=== PATIENT | male | born 1960 | race Caucasian/White ===

== ENCOUNTER 2016-03-13 11:21 | Emergency (ER) | payer MEDICARE, MEDICAID | END 2016-03-13 14:49 | disposition home or self-care (01) | LOC: ER 11:21 | DX: R53.1 Weakness (principal); E78.5 Hyperlipidemia, unspecified; J44.9 Chronic obstructive pulmonary disease, unspecified; Z86.73 Personal history of transient ischemic attack (TIA), and cerebral infarction without residual deficits; I25.2 Old myocardial infarction; E11.65 Type 2 diabetes mellitus with hyperglycemia; E78.00 Pure hypercholesterolemia, unspecified; I10 Essential (primary) hypertension; Z79.4 Long term (current) use of insulin; Z79.899 Other long term (current) drug therapy; Z79.01 Long term (current) use of anticoagulants; Z98.61 Coronary angioplasty status; F17.210 Nicotine dependence, cigarettes, uncomplicated | CPT/HCPCS: 36415; 80053; 81001; 82947; 85025; 93005 ==